=== PATIENT | male | born 1955 | race Caucasian/White ===

== ENCOUNTER 2024-08-31 11:32 | Outpatient (CLI) | payer MEDICARE, SELFPAY | END 2024-08-31 11:33 | disposition home or self-care (01) | PROVIDERS: PCP Family Medicine; Visit Provider Family Medicine | DX: N40.0 Benign prostatic hyperplasia without lower urinary tract symptoms (principal); N52.9 Male erectile dysfunction, unspecified; M17.11 Unilateral primary osteoarthritis, right knee; M17.12 Unilateral primary osteoarthritis, left knee; Z13.220 Encounter for screening for lipoid disorders; Z12.5 Encounter for screening for malignant neoplasm of prostate | CPT/HCPCS: 80053; 80061; G0103 ==

== ENCOUNTER 2024-09-13 09:01 | Outpatient (CLI) | payer MEDICARE, SELFPAY ==
--- NOTE | 2024-09-13 10:15 | P.ANES_ITS ---
Anesthesia Charges Start Date/Time Anesthesia Start Date: 09/13/24 Anesthesia Start Time: 09:40 Stop Date/Time Anesthesia Stop Date: 09/13/24 Anesthesia Stop Time: 10:08 Coding CPT Codes CPT Codes: ANES LWR INTST NDSC NOS - 45790 ([id number]) QX - ASSISTANT TODDLER TEACHER SVC W/ MED DIRECTION, QK - TOPSTITCHER ZIGZAG 2-4 CNCRNT ANES PROC, P1 - NORMAL HEALTHY PATIENT
--- NOTE | 2024-09-13 10:15 | W.ANESCHARGE ---
Anesthesia Charges Start Date/Time Anesthesia Start Date: 09/13/24 Anesthesia Start Time: 09:40 Stop Date/Time Anesthesia Stop Date: 09/13/24 Anesthesia Stop Time: 10:08 Coding CPT Codes CPT Codes: ANES LWR INTST NDSC NOS - 65314 ([id number]) QX - SPUDDER SVC W/ MED DIRECTION, QK - LOOM TUNER 2-4 CNCRNT ANES PROC, P1 - NORMAL HEALTHY PATIENT
--- NOTE | 2024-09-13 12:01 | P.ANES_ITS ---
Anesthesia Charges Start Date/Time Anesthesia Start Date: 09/13/24 Anesthesia Start Time: 09:40 Stop Date/Time Anesthesia Stop Date: 09/13/24 Anesthesia Stop Time: 10:08 Coding CPT Codes CPT Codes: MARIE LWR INTST NDLA NOS - [id number] ([id number]) P1 - NORMAL HEALTHY PATIENT, QK - LUMBER TRIPPER 2-4 CNCRNT ANES PROC, QX - REAL ESTATE SALES ASSOCIATE SVC W/ MED DIRECTION
--- NOTE | 2024-09-13 12:01 | W.ANESCHARGE ---
Anesthesia Charges Start Date/Time Anesthesia Start Date: 09/13/24 Anesthesia Start Time: 09:40 Stop Date/Time Anesthesia Stop Date: 09/13/24 Anesthesia Stop Time: 10:08 Coding CPT Codes CPT Codes: MARIE LWR INTST NDKY NOS - 69278 ([id number]) P1 - NORMAL HEALTHY PATIENT, QK - CASING CLEANER 2-4 CNCRNT ANES PROC, QX - FINISHER HAND SVC W/ MED DIRECTION
== END 2024-09-13 09:02 | disposition home or self-care (01) ==
LOC: OP CLINIC 09:02
PROVIDERS: PCP Family Medicine; Visit Provider Internal Medicine
DX: Z12.11 Encounter for screening for malignant neoplasm of colon (principal); D12.0 Benign neoplasm of cecum; D12.3 Benign neoplasm of transverse colon; D12.5 Benign neoplasm of sigmoid colon; K64.8 Other hemorrhoids; Z86.0100 Personal history of colon polyps, unspecified
CPT/HCPCS: 00811; 45380; 45385; 88305; J2704

== ENCOUNTER 2025-06-01 12:23 | Outpatient (CLI) | payer MEDICARE, SELFPAY ==
--- NOTE | 2025-06-01 10:50 | PM.PROC ---
Procedure Note Time Seen by Provider: 13:00 Date Seen: 06/01/25 Provider Contact Time: 13:45 Date of procedure: 06/01/25 Will [facility] bill your pro fee for this procedure?: Yes Procedure: CRYONEUROLYSIS TREATMENT REPORT REFERRING PROVIDER: Vlad Landrum TREATMENT PROVIDER: Lokesh Burks PREOPERATIVE DIAGNOSIS: Left knee osteoarthritis POSTOPERATIVE DIAGNOSIS: Left knee osteoarthritis? PROCEDURE: Cryoneurolysis of Multiple Sensory Nerves of the Knee ANESTHESIA: Local INDICATIONS: The patient is a very pleasant 69-year-old male patient with primary osteoarthritis involving the left knee who presents today for cryoneurolysis of multiple sensory nerves to the knee for severe knee pain.?Patient medical history was reviewed. The risks, benefits, treatment alternatives, and complications were discussed with the patient, including but not limited to bleeding, infection, nerve or tissue damage.?Informed consent was obtained. ? PRE-TREATMENT MOTOR ASSESSMENT/PAIN SCORE: Patient was able to demonstrate intact gross motor function with plantarflexion, dorsiflexion, adduction, abduction, hip flexion, and extension of the lower extremity.?Pre-treatment pain score of 7 out of 10 in the left knee. DESCRIPTION OF PROCEDURE: After obtaining informed consent, the patient was brought back to the treatment room and positioned supine on the table.?The left lower extremity was prepped with Chlorhexadine.?We began the procedure by performing our procedural pause.?Once this was completed and verified to be accurate, I began the procedure by identifying the nerves with the use of bedside ultrasound.?After the nerves were identified, the skin was marked and, using 1% lidocaine plain, the area of the nerves were anesthetized. ? After the anesthetic was administered, the Smart Tip 2190 cryoneurolysis needle was inserted into the treatment sites using ultrasound guidance.?Treatment was then initiated on the left lower extremity with the following nerves treated: Superior, superior medial, superior lateral, inferior medial genicular nerves and the infrapatellar branch of the saphenous nerve. At the termination of the treatment, the cryoneurolysis needle was removed with the patient's skin cleansed and Band-Aids and Umer bandage applied. Patient tolerated the procedure without any incident or concern.? Patient was then instructed to stand, mobilize the joint, and was examined to ensure gross motor skills were intact. COMPLICATIONS: None POST-TREATMENT PAIN SCORE: 0 out of 10. Left knee DISPOSITION: Discharge instructions were given to the patient with education on the post-procedure expectations. Patient was instructed to call the Ortho clinic with any post-procedure concerns or questions.
[2025-06-01 12:51] VITALS: BP 150/90; PULSE 46; RESP 16; TEMP 36.4; O2SAT 100
[2025-06-01 13:47] VITALS: BP 160/86; PULSE 98; RESP 16; TEMP 48; TEMP 8.8; O2SAT 98
== END 2025-06-01 13:50 | disposition home or self-care (01) ==
LOC: OP CLINIC 12:24
PROVIDERS: PCP Family Medicine; Visit Provider Nurse Anesthetist, Certified Registered
DX: M17.12 Unilateral primary osteoarthritis, left knee (principal)
CPT/HCPCS: 64640; 76942; C9809

== ENCOUNTER 2025-06-15 06:35 | Day surgery (SDC) | payer MEDICARE, SELFPAY ==
[2025-06-15] VITALS (24 sets, daily range): BP systolic 90–144; BP diastolic 59–96; PULSE 37–54; RESP 12–16; TEMP 36.1–36.6; O2SAT 92–99; BMI 26.4
[2025-06-15] MEDS: OXYCODONE (CR) 10 MG TAB.ER.12H PO (06:45)
[2025-06-15] MEDS: ACETAMINOPHEN 500 MG TABLET 1000 MG PO (06:45)
[2025-06-15] MEDS: SODIUM CHLORIDE 0.9 % (FLUSH) 10 ML SYRINGE IVF (07:00)
[2025-06-15] MEDS: LACTATED RINGERS 1000 ML 1,000 ML 100 ML IV ×2 (07:00→10:23)
--- NOTE | 2025-06-15 07:00 | W.PM.H&PU ---
History & Physical Update History & Physical Update H&P Reviewed and patient assessed: No changes noted
[2025-06-15] MEDS: MIDAZOLAM HCL 1 MG/ML inj IVP (07:15)
--- NOTE | 2025-06-15 07:18 | SUR.PREOP ---
TIME?OUT:?0715 PT/RN/MDA?VERIFICATION?OF?SURGICAL?SITE,?PROCEDURE,?AND?CONSENT OBTAINED?PRIOR?TO?INVASIVE?PROCEDURE.
--- NOTE | 2025-06-15 07:33 | SUR.PREOP ---
Patients heart rate in mid 30's, talking and tolerating bradycardia after nerve block. Patients baseline per patient is 40's.
[2025-06-15] MEDS: TRANEXAMIC ACID 100 MG/ML INJ 1000 MG IV (08:20)
--- NOTE | 2025-06-15 09:32 | P.ORPRC_ITS ---
Procedure Note Date of procedure: 06/15/25 Procedure: PREOPERATIVE DIAGNOSIS: 1. Left knee osteoarthritis, primary, severe POSTOPERATIVE DIAGNOSIS: 1. Left knee osteoarthritis, primary, severe PROCEDURE: 1. Left total knee arthroplasty, Press-Fit, Rotating Platform - No tourniquet SURGEON: Vlad Landrum MD. ARCHIVIST MILITARY HISTORY: JEIMY Rosas - Of note, a skilled early childhood teacher assistant was critical for this case to aid in patient positioning, tissue retraction, limb manipulation/positioning, and closure. ANESTHESIA: Spinal anesthetic EBL: 100ml IMPLANTS: DePuy J&J uncemented TKA - Attune PS Press-Fit femur size 7 Size 7 Press-Fit tibia Rotating Platform 5 mm RP poly spacer 41 mm patella TOURNIQUET: None COMPLICATIONS: None evident INDICATIONS: The patient is a pleasant 69-year-old male who has experienced severe left knee pain and difficulty bearing weight. Workup included x-rays which revealed severe osteoarthrosis in the knee. Given the deformity, the dysfunction, and the pain, as well as the failure of nonoperative management, recommendation was made for surgery. FINDINGS: Full-thickness chondral loss diffusely throughout the medial compartment. Osteophytosis around the patellofemoral and lateral compartments otherwise. Degenerative meniscus pathology medial greater than lateral. DESCRIPTION OF PROCEDURE: Following a thorough discussion of risks, benefits, and alternatives consent was obtained and the left knee was marked. The patient was brought to the operating room and placed supine on the operating table. Induction of anesthesia was undertaken. 2 g IV Ancef and 1 g tranexamic acid was administered within 1 hr of incision preoperatively. Proper time-out was performed identifying proper patient, site, procedure. The operative extremity was prepped and draped in the appropriate sterile fashion using ChloraPrep after the patient was positioned supine with all bony prominences well padded. A longitudinal, anterior, midline skin incision was made starting approximately 3cm proximal to the superior pole of the patella and advanced distal to the tibial tubercle. A sub vastus approach was utilized. After mobilizing the patella, retropatellar fatpad was resected and the synovium in the suprapatellar pouch excised to visualize the anterior femoral cortex. Patellar prep showed initial measurement/thickness of 26 mm. It was resected back to approximately 15.5 mm. The patella prep was completed with drilling and a trial placed followed by a protector plate until final component implantation. Femoral preparation was performed via an intramedullary guide. Step drill allowed access into the femoral canal. The distal cutting guide was placed with 5? of valgus and 12 mm cut on the distal femur. Femur was sized using a anterior referencing guide in 3? of external rotation. This was found to have a best fit with the sizing noted above. The 4 in 1 cutting block was then placed, and the distal femur shaped accordingly. The box cut was then completed. We turned our attention to the proximal tibia. Extramedullary guide was utilized for cutting with the goal of being 90 degree cut from the mechanical axis of the tibia in the varus/valgus plane utilizing tibial crest as the primary alignment. Initially a 2 mm resection was performed from the medial tibial plateau. Ultimately, balancing was achieved in both flexion and extension in both varus and valgus. The knee was able to achieve full extension comfortably. It was sized to be a best fit with as noted above. At this stage, trial implants were removed, the tibia and femoral and patellar components were opened and inserted. The real poly spacer was opened and inserted. A 3 min Betadine soak performed. Finally, a final irrigation round with normal saline was performed. Closure performed with 0 PDS and #0 Stratafix for the quad tendon/retinaculum. 2-0 Vicryl/Stratafix for the subcutaneous and 4-0 Monocryl for subcuticular closure. Dressings were applied and the patient was awoken from anesthesia and transferred the PACU in stable condition. A skilled early childhood teacher assistant was critical for this case to aid in patient positioning, tissue retraction, bone exposure, limb manipulation/positioning, patient safety, and closure. PLAN: 1. Weight bear as tolerated operative extremity. 2. 23 hr perioperative antibiotics. 3. Ice. 4. PT/OT consults for ambulation assistance/mobility education. 5. Social work consult for discharge planning. 6. DVT prophylaxis with at SCDs, and aspirin twice daily.
--- NOTE | 2025-06-15 09:56 | CRLHL7_ITS ---
For Patients: As a result of the Cures Act, medical imaging exams and procedure reports are released immediately into your electronic medical record. You may view this report before your referring provider. If you have questions, please contact your health care provider. Indication: post op left TKA Technique: Two views left knee Findings/Impression: Hardware from a left total knee arthroplasty is in satisfactory position. Bone alignment is normal. No sign of acute fracture. Postop changes are within normal limits. Dictated by Jose Ramirez MD @ 06/15/2025 11:16:35 AM (Electronically Signed)
--- NOTE | 2025-06-15 09:59 | P.ANES_ITS ---
Anesthesia Charges Start Date/Time Anesthesia Start Date: 06/15/25 Anesthesia Start Time: 08:10 Stop Date/Time Anesthesia Stop Date: 06/15/25 Anesthesia Stop Time: 09:55 Coding CPT Codes CPT Codes: ANESTH KNEE ARTHROPLASTY - 41581 ([id number]) P2 - PATIENT W/MILD SYST DISEASE, QK - DEPUTY CHIEF COUNSEL 2-4 CNCRNT ANES PROC, QX - ORNAMENTAL BRICK INSTALLER SVC W/ MD MED DIRECTION
--- NOTE | 2025-06-15 09:59 | W.ANESCHARGE ---
Anesthesia Charges Start Date/Time Anesthesia Start Date: 06/15/25 Anesthesia Start Time: 08:10 Stop Date/Time Anesthesia Stop Date: 06/15/25 Anesthesia Stop Time: 09:55 Coding CPT Codes CPT Codes: ANESTH KNEE ARTHROPLASTY - 37212 ([id number]) P2 - PATIENT W/MILD SYST DISEASE, QK - CLINICAL SOCIOLOGIST 2-4 CNCRNT ANES PROC, QX - HEEL PAINTER SVC W/ MD MED DIRECTION
--- NOTE | 2025-06-15 10:42 | P.ANES_ITS ---
Anesthesia Charges Start Date/Time Anesthesia Start Date: 06/15/25 Anesthesia Start Time: 08:10 Stop Date/Time Anesthesia Stop Date: 06/15/25 Anesthesia Stop Time: 09:55 Coding CPT Codes CPT Codes: ANESTH KNEE ARTHROPLASTY - 56835 ([id number]) QK - LIME KILN WORKER 2-4 CNCRNT ANES PROC, QX - MANAGEMENT PSYCHOLOGIST SVC W/ MD MED DIRECTION, P2 - PATIENT W/MILD SYST DISEASE
--- NOTE | 2025-06-15 10:42 | W.ANESCHARGE ---
Anesthesia Charges Start Date/Time Anesthesia Start Date: 06/15/25 Anesthesia Start Time: 08:10 Stop Date/Time Anesthesia Stop Date: 06/15/25 Anesthesia Stop Time: 09:55 Coding CPT Codes CPT Codes: ANESTH KNEE ARTHROPLASTY - 60859 ([id number]) QK - LINTER DRIER OPERATOR 2-4 CNCRNT ANES PROC, QX - AUDIO NARRATOR SVC W/ MD MED DIRECTION, P2 - PATIENT W/MILD SYST DISEASE
--- NOTE | 2025-06-15 10:43 | W.PM.NB ---
Nerve Block Nerve Block Time Seen by Provider: 07:15 Date Seen: 06/15/25 Type of block requested by surgeon for post-operative analgesia: adductor canal Side: left Time out performed: Yes Verification of patient name: Yes Verification of date of : Yes Site marking: site marked Name of person performing procedure: Vitaliy Continuous monitoring Was continuous monitoring of O2 sat, B/P, electronics system mechanic, recorded every 15 minutes?: Yes Procedure Checklist: sterile prep, needles and gloves Ultrasound guided. Images saved: Yes Medications given in 5ml increments after negative aspiration: Marcaine %: 0.25 mL: 15 Needle gauge: 20 Precedex (mcg): 25 Patient tolerated procedure well: Yes Block Charges Block Charge (with Pro Fee): Femoral Nerve Use of Ultrasound Machine for Block: Yes- US Guidance/pain block
--- NOTE | 2025-06-15 10:43 | W.PM.NB ---
Nerve Block Nerve Block Time Seen by Provider: 07:15 Date Seen: 06/15/25 Type of block requested by surgeon for post-operative analgesia: geniculars Side: left Time out performed: Yes Verification of patient name: Yes Verification of date of : Yes Site marking: site marked Name of person performing procedure: Vitaliy Continuous monitoring Was continuous monitoring of O2 sat, B/P, quality assurance monitor chassis, recorded every 15 minutes?: Yes Procedure Checklist: sterile prep, needles and gloves Ultrasound guided. Images saved: Yes Medications given in 5ml increments after negative aspiration: Marcaine %: 0.25 mL: 9 Needle gauge: 25 Patient tolerated procedure well: Yes Block Charges Block Charge (with Pro Fee): Genicular Nerve Block
[2025-06-15] MEDS: IBUPROFEN 200 MG TABLET 600 MG PO (12:52)
--- NOTE | 2025-06-15 14:32 | SUR.PHASEII ---
1345: Patient up at bedside and changed into brief and scrub pants. Wet clothes in bag for patient to bring home. Patient states numbness in right foot is improving. Patient ambulated to recliner with gait belt, walker, and stand by assist. PT notified of delay.
--- NOTE | 2025-06-15 14:34 | SUR.PHASEII ---
1415: Patient states numbness has significantly improved. Patient can feel underwriter mortgage loan putting pressure on right foot. Patient feels he is ready for PT. Pain 0.5/10. VSS PT notified. Pt to PT via wheelchair at 1430.
== END 2025-06-15 15:16 | disposition home or self-care (01) ==
PROVIDERS: PCP Family Medicine; Visit Provider Orthopaedic Surgery Sports Medicine
PROC: (CPT 27447; principal; 2025-06-15 07:45)
DX: M17.12 Unilateral primary osteoarthritis, left knee (principal); G89.18 Other acute postprocedural pain; N40.0 Benign prostatic hyperplasia without lower urinary tract symptoms
CPT/HCPCS: 27447; 01402; 64447; 64454; 73560; 76942; 97110; 97116; 97161; 97530; A9270; C1776; J0665; J0690; J1100; J2250; J2371; J2405; J2704; J3010; J7120